=== PATIENT | male | born 1975 | race Caucasian/White ===

== ENCOUNTER 2023-12-20 13:46 | Emergency (ER) | payer SELFPAY ==
[~2023-12-20] VITALS: Ht 177.8 cm; Wt 97.5 kg
[2023-12-20 13:48] VITALS: BP 200/112; PULSE 112; RESP 18; TEMP 98; O2SAT 95
[2023-12-20] MEDS: BACITRACIN OINT 500 UNITS/GM PKT TP ONE (14:20)
[2023-12-20 14:37] LABS: BASOPHILS # (AUTO) 0.1 K/uL (0.00-0.22); BASOPHILS % (AUTO) 1.2 % (0.0-2.0); EOSINOPHILS % (AUTO) 0.3 % (0.0-4.0); HEMATOCRIT 36.8 % (36-52); HEMOGLOBIN 12.5 g/dL (12.0-18.0); LYMPHOCYTES # (AUTO) 0.7 K/uL (2.0-11.5); LYMPHOCYTES % (AUTO) 14.8 % (20.5-51.1); MEAN CORPUSCULAR HEMOGLOBIN 31 pg (27-31); MEAN CORPUSCULAR HGB CONC 34 g/dL (33-37); MEAN CORPUSCULAR VOLUME 90.6 fL (80-94); MONOCYTES # (AUTO) 0.3 K/uL (0.8-1.0); NEUTROPHILS # (AUTO) 3.5 K/uL (1.8-7.7); NEUTROPHILS % (AUTO) 77.7 % (42.2-75.2); PLATELET COUNT (AUTO) 107 K/uL (140-450); RED BLOOD CELL COUNT(AUTO) 4.06 MIL/uL (4.20-6.10); WHITE BLOOD COUNT (AUTO) 4.5 K/uL (4.8-10.8)
[2023-12-20 14:48] LABS: ANION GAP 21.7 (8-16); CALCIUM 9.4 mg/dL (8.5-10.1); CARBON DIOXIDE 21.8 mmol/L (21-32); CREATININE 1.2 mg/dL (0.6-1.3); POTASSIUM 3.5 mmol/L (3.5-5.1)
[2023-12-20 14:58] LABS: ALBUMIN 4.2 g/dL (3.4-5.0); BILIRUBIN,DIRECT 0.2 mg/dL (0.0-0.3); TOTAL BILIRUBIN 0.7 mg/dL (0.0-1.0); TOTAL PROTEIN, SERUM 7.6 g/dL (6.4-8.2)
[2023-12-20] MEDS: IBUPROFEN 600 MG TAB PO ONE (17:36)
[2023-12-20 18:03] VITALS: BP 163/87; PULSE 61; RESP 16; TEMP 98; O2SAT 99
== END 2023-12-20 17:46 | disposition home or self-care (01) ==
LOC: EDBD 13:46 → MED 13:46
DX: S01.81XA Laceration without foreign body of other part of head, initial encounter (principal); R74.01 Elevation of levels of liver transaminase levels; I10 Essential (primary) hypertension; Z72.89 Other problems related to lifestyle; W18.30XA Fall on same level, unspecified, initial encounter; Y93.89 Activity, other specified; Y92.89 Other specified places as the place of occurrence of the external cause; Y99.8 Other external cause status
CPT/HCPCS: 12011; 36415; 70450; 70486; 80048; 80076; 85025; 90471; 90715; 99285; G0482